=== PATIENT | male | born 1955 | race Two or more races ===

== ENCOUNTER 2022-11-16 07:48 | Inpatient (IN) | payer OTHER ==
[~2022-11-16] VITALS: Ht 177.8 cm; Wt 110.7 kg
[~2022-11-16 07:48] MED LIST: TAMS0.4C PO; [UNRECOGNIZED DRUG - OTHER] PO; [UNRECOGNIZED DRUG - OTHER] PO
== END 2022-11-17 13:16 | disposition home or self-care (01) | DRG 999 ==
LOC: CIR.AMB 07:48 → SURH 15:29
PROVIDERS: ADMIT Urology; ATTEND Urology
PROC: 0VT08ZZ Resection of Prostate, Via Natural or Artificial Opening Endoscopic (ICD-10-PCS; principal; 2022-11-16 08:30)
DX: N40.1 Benign prostatic hyperplasia with lower urinary tract symptoms (principal); I10 Essential (primary) hypertension; R39.14 Feeling of incomplete bladder emptying